=== PATIENT | female | born 1960 | race Caucasian/White ===

== ENCOUNTER 2019-06-26 08:53 | Day surgery (SDC) | payer MEDICARE, SELFPAY ==
[2019-06-26] VITALS (7 sets, daily range): BP systolic 101–130; BP diastolic 53–76; PULSE 84–109; RESP 15–16; TEMP 36.6–36.8; O2SAT 88–98; BMI 36.2
[2019-06-26 09:15] LABS: Prothrombin Time Fingerstick 15.6 SEC (11.9-14.4)
[2019-06-26] MEDS: Lactated Ringers 1,000 ML 100 ML IV ×2 (09:38→12:11)
--- NOTE | 2019-06-26 10:25 | PCM.OPRPT ---
Problem List (1) Urinary urgency Status: Acute (2) Urinary frequency Status: Acute (3) Urge incontinence Status: Acute (4) Nocturia Status: Acute Report of Operation Date of Procedure: 06/26/19 Pre-Operative Diagnosis: urinary urgency, frequency, urge incontinence and nocturia Post-Operative Diagnosis: same Surgery/Procedure Performed:: Replace Interstim lead and battery Description of Surgical Findings:: The old lead and battery removed in their entirety. New lead placed in the patient's left side, same pocket site used on the patient's right. All 4 leads with good response. Type of Anesthesia:: MAC Special Medications: Vancomycin Estimated Blood Loss (mL): 10cc Description of Procedure: The patient is a 58-year-old female who has had her InterStim for 5 years. The battery life has decreased and it has been causing discomfort down her leg. After discussing the risk benefits and alternatives, she agreed to proceed with removal and replacement of InterStim lead and battery. The patient stopped her Coumadin 5 days ago. She received vancomycin intravenously. Patient was taken to the operating room placed in the operating room table in a prone position. Anesthesia monitored the head, neck, airway, IV access and vital signs throughout the case. After appropriate administration of anesthesia, she was prepped and draped in usual sterile fashion. The pocket site was infiltrated with 1% lidocaine with epinephrine, and the lead insertion site as well. An incision was made over the pocket at the pre-existing scar. The battery was brought into the field and the lead was grasped with hemostat and the lead was cut and the battery removed from the field. Incision was made over the lead and insertion site and the lead was grasped with hemostats and pulled into the field. It was then slowly removed with constant pressure using hemostats sequentially moved downward. The entire lead was removed. Using fluoroscopic visualization, the patient's foramen was identified on the left side. This area was infiltrated with 1% lidocaine with epinephrine. The needle was placed through the S3 foramen and good misael and toe response were obtained. An incision was made around the guidewire once the needle was removed. The area was then dilated using the dilator. The lead with the curved stylette was then inserted and appropriate positioning was identified on fluoroscopic visualization. The lead was then tested and all 4 leads had good toe flexion and misael response. The lead was left in this position and was tunneled into the existing pocket site. The new IPG was connected, the lead was inserted to the end and screwed in and using the torque wrench. The IPG was placed placed back into the pocket site and impedances were found to be opiate. All the incision sites were hemostatic and were closed with 3-0 Vicryl interrupted followed by 4-0 subcuticular suturing. Dermabond was applied. The patient was then awakened and taken to the recovery room in good condition. There were no complications during the procedure. Grafts/Implants Used: Interstim lead and IPG - Complications none - Admit VTE Documentation VTE Present on Admission: No VTE Mechan Device Prophylaxis: None VTE Pharm Prophylaxis ordered?: No Reason prophylaxis not ordered:: Treatment Not Indicated - restarted coumadin today
--- NOTE | 2019-06-26 10:40 | RAD_ITS ---
STUDY: X-RAY - PELVIS REASON FOR EXAM: Female, 58 years old. InterStim battery and lead change. TECHNIQUE: One view of the pelvis was obtained. COMPARISON: None. FINDINGS: Fluoroscopic services provided for InterStim battery and lead change. RAD/Pelvis 1 or 2 Views IMPRESSION: Fluoroscopic services provided for InterStim battery and lead change. Electronically Signed: Antoine Jack, at 13:15 EST , Service support ,
--- NOTE | 2019-06-26 12:04 | DCINST_ITS ---
Discharge Diet: No Restrictions Discharge Activity: Return to Normal Activity, May Shower - IN 2 DAYS Call your doctor if you observe: Fever of 101 or Higher, Inability to urinate, Shortness of breath, Chest pain, Calf discomfort, Uncontrolled pain Remove Dressing in (days):: 2 Additional Instructions: resume coumadin today Allergies/Adverse Reactions: Allergies paroxetine [From Paxil] Allergy (Verified 06/26/19 09:20) Other MAJOR EDEMA pramipexole [From Mirapex] Allergy (Verified 06/26/19 09:20) Other CONFUSION SURGICAL TAPE Allergy (Uncoded 06/26/19 09:20) Other REMOVES SKIN Medications to take at Discharge Albuterol Inhaler [Ventolin Hfa] 1 - 2 puff INHALATION Q4H PRN PRN 06/20/19 Aripiprazole [Abilify] 15 mg PO DAILY 06/20/19 Atorvastatin Calcium [Lipitor] 10 mg PO QHS 06/20/19 Cholecalciferol (Vitamin D3) [Vitamin D3] 5,000 unit PO DAILY 06/20/19 Lamotrigine [Lamictal] 300 mg PO DAILY 06/20/19 Levothyroxine [Synthroid] 112 mcg PO DAILY 06/20/19 Magnesium 500 mg PO DAILY 06/20/19 Mometasone/Formoterol [Dulera 200 Mcg/5 Mcg Inhaler] 13 gm IH BID 06/20/19 Montelukast Sodium [Singulair] 10 mg PO DAILY 06/20/19 Pantoprazole Sodium [Protonix] 40 mg PO DAILY 06/20/19 Tiotropium [place] [Spiriva 18 MCG] 1 puff INHALATION DAILY 06/20/19 Venlafaxine XR [Effexor Xr] 225 mg PO QHS 06/20/19 Warfarin [Coumadin] 4 mg PO MOFR 06/20/19 Warfarin [Coumadin] 6 mg PO SUTUWETHSA 06/20/19 buPROPion XL [Wellbutrin Xl] 450 mg PO DAILY 06/20/19 traZODone [Desyrel] 100 mg PO QHS 06/20/19 Cephalexin [Keflex] 500 mg PO Q8 #9 cap 06/26/19 Oxycodone HCl/Acetaminophen [Percocet 5/325] 2 tab PO Q8H PRN PRN 7 Days #20 tab 06/26/19 The following prescriptions were given: Cephalexin [Keflex] 500 mg PO Q8 #9 cap Prescription Printed Oxycodone HCl/Acetaminophen [Percocet 5/325] 2 tab PO Q8H PRN PRN 7 Days #20 tab PRN Reason: Pain Prescription Printed Primary Care Physician: PEREZ TINSLEY [Other] Test Results: Test results from this visit will be discussed in further detail at your follow- up appointment, if applicable. Please Follow Up With: Rayna Velasco MD When: 2 weeks, call office for appt Proposed Discharge Date: 06/26/19
[2019-06-26] MEDS: HYDROcodone Bitartrate/Apap 5/325 Tablet PO (13:03)
== END 2019-06-26 13:32 | disposition home or self-care (01) ==
LOC: SDC 08:55 → AC 08:57
PROVIDERS: Referring Provider Urology; Visit Provider Urology
PROC: (CPT 64581; principal; 2019-06-26 10:30)
DX: N39.41 Urge incontinence (principal); R35.0 Frequency of micturition; J45.909 Unspecified asthma, uncomplicated; G47.30 Sleep apnea, unspecified; K59.00 Constipation, unspecified; K21.9 Gastro-esophageal reflux disease without esophagitis; F41.9 Anxiety disorder, unspecified; F32.9 Major depressive disorder, single episode, unspecified; E06.9 Thyroiditis, unspecified; E78.00 Pure hypercholesterolemia, unspecified; Z86.718 Personal history of other venous thrombosis and embolism; Z79.01 Long term (current) use of anticoagulants; Z79.899 Other long term (current) drug therapy; Z87.891 Personal history of nicotine dependence
CPT/HCPCS: 64581; 64590; 36416; 72170; 76000; 85610; J7040; J7120; C1767; C1778; C1820; J2405

== ENCOUNTER 2023-04-07 09:01 | Day surgery (SDC) | payer MEDICARE, SELFPAY ==
[2023-04-07] VITALS (7 sets, daily range): BP systolic 119–132; BP diastolic 76–97; PULSE 88–900; RESP 18–20; TEMP 36.5–36.8; O2SAT 100; BMI 38.0
--- NOTE | 2023-04-07 09:00 | DCINST_ITS ---
Discharge Instructions Diet Discharge Diet: No restrictions Activity Discharge Activity: Return to Normal Activity and May Shower (Tomorrow) May resume sexual activity in: No Restrictions Dressing / Incision Call your doctor if your incision/area has: Continuous Slow Oozing, Sudden Increased Bleeding, Increased Pain/ Swelling, Increased Redness, Foul Smelling Discharge and Swelling at the incision site Call your doctor if you observe: Fever of 101 or Higher, Inability to urinate and Inability to have a bowel movement Remove Dressing in: leave until fall off Follow Up Care Please Follow Up With: Rayna Velasco MD When: Call the office for appointment Test Results: Test results from this visit will be discussed in further detail at your follow- up appointment, if applicable. Discharge Plan Admission Attending Provider: Rayna Velasco Primary Care Provider: PEREZ TINSLEY Discharge Orders/Prescriptions Prescriptions: New oxycodone-acetaminophen [Percocet] 5-325 mg tablet 1 tab PO Q8H PRN (Reason: pain) 3 Days Qty: 9 0RF cephalexin [cephalexin] 500 mg capsule 500 mg PO Q12 3 Days Qty: 6 0RF Continued lamotrigine 200 MG tablet 300 mg PO DAILY atorvastatin 10 MG tablet 10 mg PO QHS warfarin 6 MG tablet 6 mg PO DAILY trazodone 100 MG tablet 100 mg PO QHS pantoprazole 40 MG tablet 40 mg PO DAILY montelukast 10 MG tablet 10 mg PO DAILY magnesium 250 MG tablet 500 mg PO DAILY albuterol sulfate 1 INHALER inhaler 1 - 2 puff inhalation Q4H PRN PRN (Reason: Asthma) cholecalciferol (vitamin D3) 5,000 UNIT capsule 5,000 unit PO DAILY levothyroxine 112 MCG tablet 112 mcg PO DAILY aripiprazole 15 MG tablet 15 mg PO DAILY tiotropium bromide 1 PUFF inhaler 1 puff inhalation DAILY mometasone-formoterol 13 GM HFA aerosol inhaler 13 gm IH BID furosemide [Lasix] 40 mg tablet 40 mg PO DAILY desvenlafaxine succinate [Pristiq] 100 mg tablet extended release 24 hr 150 mg PO DAILY Referrals / Follow Up: PEREZ TINSLEY [Other] Disposition Disposition (needs filled in before D/C Order can be placed): Home, Self Care
--- NOTE | 2023-04-07 09:01 | PCM.OPRPT ---
Report of Operation Date of Procedure: 04/07/23 Pre-Operative Diagnosis: Urinary urgency, frequency, urge incontinence, nocturia Post-Operative Diagnosis: Same Surgery/Procedure Performed:: Removal of InterStim lead and battery Type of Anesthesia: MAC Description of Procedure: The patient is a 62-year-old female with a nonfunctioning InterStim that she desires removed. Informed consent was obtained. The patient was taken to the operating room and placed in a prone position on the operating room table. She was appropriately padded and secured to the table. Anesthesia monitored the head, neck, airway, IV access and vital signs throughout the case. Once anesthesia was appropriately administered, the patient was prepped and draped in usual sterile fashion. At this time the areas overlying the lead insertion site and the battery pocket site were infiltrated with local anesthetic. Incisions were made in both of these sites. The pocket site was addressed first where sharp dissection continued until the battery was identified along with the lead and was brought into the operative field. Using heavy scissors, the battery was removed from the field. Using a hemostat and mild tension on the lead, the lead was then identified and the lead insertion site. Using hemostats the lead was removed. Both of these incisions were irrigated with sterile water. The incisions were closed with 3-0 interrupted Vicryl followed by 4-0 subcuticular closure and skin glue. The patient was then awakened and taken to the recovery room in good condition. There were no complications during this procedure. Grafts/Implants Used: None Complications None Admit VTE Documentation VTE Present on Admission: Yes VTE Mechan Device Prophylaxis: SCD's VTE Pharm Prophylaxis ordered?: No Reason prophylaxis not ordered:: Treatment Not Indicated
[2023-04-07 09:45] LABS: INR Fingerstick 1.2
[2023-04-07] MEDS: Lactated Ringers 1,000 ML 15 ML IV (10:10)
[2023-04-07] MEDS: Cefazolin 2 GM in 0.9% Normal Saline 100 ML IV (11:55)
[2023-04-07] MEDS: Lidocaine 1%/Epi 1:200 (30ml) 30 ML AMPUL (12:03)
== END 2023-04-07 13:53 | disposition home or self-care (01) ==
LOC: SDC 09:04 → AC 10:02
PROVIDERS: Referring Provider Urology; Visit Provider Urology
PROC: (CPT 63688; principal; 2023-04-07 10:50)
DX: Z45.42 Encounter for adjustment and management of neurostimulator (principal); J44.9 Chronic obstructive pulmonary disease, unspecified; N39.41 Urge incontinence; R35.0 Frequency of micturition; Z99.89 Dependence on other enabling machines and devices; F32.A Depression, unspecified; R23.3 Spontaneous ecchymoses; Z79.01 Long term (current) use of anticoagulants; E78.00 Pure hypercholesterolemia, unspecified; K21.9 Gastro-esophageal reflux disease without esophagitis; R35.1 Nocturia; K59.00 Constipation, unspecified; Z86.718 Personal history of other venous thrombosis and embolism; J45.909 Unspecified asthma, uncomplicated
CPT/HCPCS: 63688; 63661; 00300; 36416; 85610; J7120